=== PATIENT | male | born 1960 | race Caucasian/White ===

== ENCOUNTER 2017-11-17 18:23 | Inpatient (IN) | payer OTHER ==
[2017-11-17 23:58] LABS: WHITE BLOOD COUNT 11.8 10^3/ul (4.8-10.8)
[2017-11-17 23:58] LABS: ABNORMAL IP MESSAGE 1; HEMATOCRIT 39.2 % (42.0-52.0); HEMOGLOBIN 13.3 g/dl (14.0-18.0); MEAN CORPUSCULAR HEMOGLOBIN 32.3 pg (29.0-33.0); MEAN CORPUSCULAR HGB CONC 33.9 g/dl (32.0-37.0); MEAN CORPUSCULAR VOLUME 95.1 fl (82.0-101.0); MEAN PLATELET VOLUME 10.4 fl (7.4-10.4); PLATELET COUNT 285 10^3/UL (140-415); POSITIVE DIFF @See below; RED BLOOD COUNT 4.12 10^6/ul (4.70-6.10); RED CELL DISTRIBUTION WIDTH 13.2 % (11.5-14.5)
[2017-11-17] MEDS: morphine 2 MG INJ IV (23:58)
[2017-11-17] MEDS: ONDANSETRON 4 MG INJ IV (23:58)
[2017-11-17] MEDS: SOD CHLORIDE 0.9% 1,000 ML IV (23:58)
[2017-11-18 00:01] LABS: ADD MAN DIFF? YES
[2017-11-18 00:03] LABS: ADD UMIC NO; UR ASCORBIC ACID NEGATIVE (NEGATIVE); UR BILIRUBIN (Dip) NEGATIVE (NEGATIVE); UR BLOOD (Dip) NEGATIVE (NEGATIVE); UR CLARITY CLEAR (CLEAR); UR COLOR AMBER (YELLOW); UR GLUCOSE (Dip) NEGATIVE (NEGATIVE); UR KETONES (Dip) NEGATIVE (NEGATIVE); UR LEUKOCYTE ESTERASE (Dip) NEGATIVE Leu/ul (NEGATIVE); UR NITRITE (Dip) NEGATIVE (NEGATIVE); UR SPECIFIC GRAVITY (Dip) 1.021 (1.003-1.030); UR TOTAL PROTEIN (Dip) NEGATIVE (NEGATIVE); UR UROBILINOGEN (Dip) 2+ mg/dL (NEGATIVE)
[2017-11-18 00:14] LABS: ALANINE AMINOTRANSFERASE 32 IU/L (13-69); ALBUMIN/GLOBULIN RATIO 0.68; ALKALINE PHOSPHATASE 88 IU/L (42-121); ANION GAP 14 (8-16); ASPARTATE AMINO TRANSFERASE 33 IU/L (15-46); BILIRUBIN,INDIRECT 0.9 mg/dl (0-1.1); BILIRUBIN,TOTAL 0.9 mg/dl (0.2-1.3); BLOOD UREA NITROGEN 19 mg/dl (7-20); CARBON DIOXIDE 32 mmol/L (21-31); CHLORIDE 87 mmol/L (97-110); CREATININE 0.83 mg/dl (0.61-1.24); GLUCOSE 148 mg/dl (70-220); LIPASE 95 U/L (23-300); POTASSIUM 3.3 mmol/L (3.5-5.1); SODIUM 130 mmol/L (135-144); TOTAL PROTEIN 7.4 g/dl (6.1-8.1)
[2017-11-18] MEDS ORDERED: AZITHROMYCIN 500MG/NS (PMX) 250 ML IV (00:16)
[2017-11-18 00:38] LABS: TROPONIN-I < 0.012 ng/ml (0.000-0.120)
[2017-11-18] MEDS: CEFTRIAXONE 1 GM/50 ML (PMX) 50 ML IVPB (00:45)
[2017-11-18] MEDS: POTASSIUM CHLORIDE (SR) 20 MEQ TAB PO (00:45)
[2017-11-18] MEDS: SODIUM CHLORIDE 0.9% 1L BAG IV* (00:45)
[2017-11-18] MEDS ORDERED: NACL 0.9% 3 ML SYG IV (01:00)
[2017-11-18] MEDS: AZTREONAM 1 GM/NS (PMX) 50 ML IVPB (01:11)
[2017-11-18 01:24] LABS: MAGNESIUM 2.3 mg/dl (1.7-2.5)
[2017-11-18 01:24] LABS: BAND NEUTROPHILS #M 4.6 10^3/ul (0.0-0.6); BAND NEUTROPHILS % (M) 39 % (0-4); EOSINOPHILS % (M) 1 % (0-7); LYMPHOCYTES #M 0.1 10^3/ul (0.8-2.9); LYMPHOCYTES % (M) 1 % (15-51); MONOCYTE #M 0.1 10^3/ul (0.3-0.9); MONOCYTES % (M) 1 % (0-11); PLATELET ESTIMATE NORMAL; REACTIVE LYMPHOCYTES #M 0.1 10^3/ul (0.0-0.0); REACTIVE LYMPHOCYTES% (M) 1 % (0-0); SEG NEUT #M 7.3 10^3/ul (1.6-7.5); SEGMENTED NEUTROPHILS (M) % 57 % (39-77); SMUDGE%M 1 % (0-0)
[2017-11-18 01:28] LABS: LACTIC ACID 2.3 mmol/L (0.5-2.0)
[2017-11-18] MEDS: ALBUMIN HUMAN 25% 100 ML IV ×3 (01:29→18:19)
[2017-11-18 01:33] LABS: B-TYPE NATRIURETIC PEPTIDE 685 PG/ML (0-125)
[2017-11-18 01:49] LABS: ETHANOL < 10.0 mg/dl
[2017-11-18] MEDS: SOD CHLORIDE 0.9% 1,000 ML IV (02:29)
[2017-11-18 03:27] LABS: LACTIC ACID 1.6 mmol/L (0.5-2.0)
[2017-11-18] MEDS: SOD CHLORIDE 0.9% 500 ML IV (03:59)
[2017-11-18 04:16] LABS: CANNABINOIDS Negative (NEGATIVE)
[2017-11-18 04:18] LABS: AMPHETAMINE/METHAMPHETAMINE Negative (NEGATIVE); BARBITURATES Negative (NEGATIVE); BENZODIAZEPINES Negative (NEGATIVE); COCAINE Negative (NEGATIVE); OPIATES Negative (NEGATIVE)
[2017-11-18 05:22] LABS: ADD MAN DIFF? NO; HAAIG REFLEX REFLEX FILED
[2017-11-18 05:36] LABS: ABNORMAL IP MESSAGE 1; BASOPHILS % 0.2 % (0.0-2.0); EOSINOPHILS # 0.1 10^3/ul (0.0-0.5); EOSINOPHILS % 0.9 % (0.0-7.0); HEMATOCRIT 35.4 % (42.0-52.0); HEMOGLOBIN 11.7 g/dl (14.0-18.0); LYMPHOCYTES # 0.3 10^3/ul (0.8-2.9); MEAN CORPUSCULAR HGB CONC 33.1 g/dl (32.0-37.0); MEAN CORPUSCULAR VOLUME 96.7 fl (82.0-101.0); MEAN PLATELET VOLUME 10.5 fl (7.4-10.4); MONOCYTE # 0.5 10^3/ul (0.3-0.9); MONOCYTES % 4.9 % (0.0-11.0); NEUTROPHIL # 9.3 10^3/ul (1.6-7.5); NEUTROPHILS % 90.1 % (39.0-77.0); PLATELET COUNT 221 10^3/UL (140-415); POSITIVE DIFF @See below; RED BLOOD COUNT 3.66 10^6/ul (4.70-6.10); RED CELL DISTRIBUTION WIDTH 13.2 % (11.5-14.5)
[2017-11-18 05:36] LABS: WHITE BLOOD COUNT 10.3 10^3/ul (4.8-10.8)
[2017-11-18 05:42] LABS: CREATINE KINASE 31 IU/L (23-200)
[2017-11-18 05:46] LABS: LACTIC ACID 1.5 mmol/L (0.5-2.0)
[2017-11-18] MEDS: PIPER-TAZO 3.375 GM IV (PMX) 100 ML IVPB ×3 (05:46→18:19)
[2017-11-18 05:47] LABS: INR 1.44; PROTIME 17.8 Sec (11.9-14.9); PT RATIO 1.4
[2017-11-18 05:48] LABS: PARTIAL THROMBOPLASTIN TIME 40.3 Sec (25.0-35.0)
[2017-11-18 05:56] LABS: TROPONIN-I < 0.012 ng/ml (0.000-0.120)
[2017-11-18 06:24] LABS: HEPATITIS B SURFACE ANTIGEN NEGATIVE (NEGATIVE)
[2017-11-18 06:42] LABS: HEPATITIS B CORE ANTIBODY NEGATIVE (NEGATIVE); HEPATITIS C VIRAL ANTIBODY NEGATIVE (NEGATIVE)
[2017-11-18 07:23] LABS: HEMOGLOBIN A1C 6.3 % (0-5.9)
[2017-11-18 08:01] LABS: BAND NEUTROPHILS #M 3.5 10^3/ul (0.0-0.6); BAND NEUTROPHILS % (M) 34 % (0-4); BASOPHIL #M 0.1 10^3/ul (0.0-0.0); BASOPHILS % (M) 1 % (0-2); BURR CELLS 1+ (0-0); GIANT THROMBO% (M) 1 % (0-0); LYMPHOCYTES #M 0.2 10^3/ul (0.8-2.9); LYMPHOCYTES % (M) 2 % (15-51); MONOCYTES % (M) 10 % (0-11); PLATELET ESTIMATE NORMAL; POIKILOCYTOSIS 1+ (0-0); POLYCHROMASIA 1+ (0-0); SEG NEUT #M 5.8 10^3/ul (1.6-7.5); SEGMENTED NEUTROPHILS (M) % 53 % (39-77)
[2017-11-18 08:46] LABS: ALANINE AMINOTRANSFERASE 30 IU/L (13-69); ALBUMIN 2.3 g/dl (3.3-4.9); ALBUMIN/GLOBULIN RATIO 0.65; ALKALINE PHOSPHATASE 60 IU/L (42-121); ANION GAP 14 (8-16); ASPARTATE AMINO TRANSFERASE 22 IU/L (15-46); BILIRUBIN,INDIRECT 0.5 mg/dl (0-1.1); BILIRUBIN,TOTAL 0.5 mg/dl (0.2-1.3); BLOOD UREA NITROGEN 16 mg/dl (7-20); CALCIUM 7.4 mg/dl (8.4-10.2); CARBON DIOXIDE 28 mmol/L (21-31); CHLORIDE 96 mmol/L (97-110); CREATININE 0.66 mg/dl (0.61-1.24); GLUCOSE 103 mg/dl (70-220); HDL CHOLESTEROL 13 mg/dl (28-71); POTASSIUM 3.8 mmol/L (3.5-5.1); SODIUM 134 mmol/L (135-144); TOTAL PROTEIN 5.8 g/dl (6.1-8.1); TRIGLYCERIDES 44 mg/dl (0-149)
[2017-11-18 08:53] LABS: CHOLESTEROL < 50 mg/dl (100-200)
[2017-11-18] MEDS: MULTIVITAMINS 10 ML, THIAMINE 100 MG, FOLIC ACID 1 MG in SOD CHLORIDE 0.9% 1,000 ML IVPB (09:34)
[2017-11-18 11:59] LABS: LACTIC ACID 1.1 mmol/L (0.5-2.0)
[2017-11-18 12:03] LABS: CREATINE KINASE 21 IU/L (23-200)
[2017-11-18 12:18] LABS: HIV 1&2 ANTIBODY NEGATIVE (NEGATIVE)
[2017-11-18 12:25] LABS: CK-MB < 0.22 ng/ml (0.0-2.4); TROPONIN-I < 0.012 ng/ml (0.000-0.120)
[2017-11-18] MEDS ORDERED: DOXYCYCLINE 100 MG TAB PO (18:00)
[2017-11-18] MEDS: GUAIFENESIN/DM 5ML CUP PO (21:01)
[2017-11-18] MEDS ORDERED: VANCOMYCIN IV PER PHARMACY XX (21:30)
[2017-11-18] MEDS: VANCOMYCIN 1.5 GM in SOD CHLORIDE 0.9% 250 ML IVPB (23:32)
[2017-11-19] MEDS: PIPER-TAZO 3.375 GM IV (PMX) 100 ML IVPB ×2 (01:21→05:30)
[2017-11-19 06:05] LABS: ADD MAN DIFF? NO
[2017-11-19] MEDS: GUAIFENESIN/DM 5ML CUP PO ×3 (06:07→20:28)
[2017-11-19 06:16] LABS: ABNORMAL IP MESSAGE 1; HEMATOCRIT 33.8 % (42.0-52.0); HEMOGLOBIN 11.3 g/dl (14.0-18.0); MEAN CORPUSCULAR HEMOGLOBIN 32.3 pg (29.0-33.0); MEAN CORPUSCULAR HGB CONC 33.4 g/dl (32.0-37.0); MEAN CORPUSCULAR VOLUME 96.6 fl (82.0-101.0); MEAN PLATELET VOLUME 10.2 fl (7.4-10.4); PLATELET COUNT 201 10^3/UL (140-415); POSITIVE DIFF @See below; RED CELL DISTRIBUTION WIDTH 13.3 % (11.5-14.5)
[2017-11-19 06:16] LABS: WHITE BLOOD COUNT 8.2 10^3/ul (4.8-10.8)
[2017-11-19 07:09] LABS: ANION GAP 11 (8-16); BLOOD UREA NITROGEN 5 mg/dl (7-20); CALCIUM 7.6 mg/dl (8.4-10.2); CARBON DIOXIDE 29 mmol/L (21-31); CHLORIDE 100 mmol/L (97-110); CREATININE 0.52 mg/dl (0.61-1.24); GLUCOSE 121 mg/dl (70-220); MAGNESIUM 2.3 mg/dl (1.7-2.5); PHOSPHORUS 2.4 mg/dl (2.5-4.9); POTASSIUM 3.2 mmol/L (3.5-5.1); SODIUM 137 mmol/L (135-144)
[2017-11-19] MEDS: MULTIVITAMINS 10 ML, THIAMINE 100 MG, FOLIC ACID 1 MG in SOD CHLORIDE 0.9% 1,000 ML IVPB (08:15)
[2017-11-19 08:49] LABS: BAND NEUTROPHILS #M 2.6 10^3/ul (0.0-0.6); BAND NEUTROPHILS % (M) 32 % (0-4); EOSINOPHILS % (M) 1 % (0-7); LYMPHOCYTES #M 0.1 10^3/ul (0.8-2.9); LYMPHOCYTES % (M) 2 % (15-51); MONOCYTE #M 0.5 10^3/ul (0.3-0.9); MONOCYTES % (M) 7 % (0-11); PLATELET ESTIMATE NORMAL; POLYCHROMASIA 2+ (0-0); SEGMENTED NEUTROPHILS (M) % 58 % (39-77); SMUDGE%M 5 % (0-0)
[2017-11-19] MEDS: POTASSIUM CHLORIDE (SR) 20 MEQ TAB PO (10:08)
[2017-11-19] MEDS: CEFTRIAXONE 1 GM/50 ML (PMX) 50 ML IVPB (10:08)
[2017-11-19] MEDS: VANCOMYCIN 1.25 GM in SOD CHLORIDE 0.9% 250 ML IVPB ×2 (10:59→22:45)
[2017-11-19] MEDS: NEUTRA-PHOS 250 MG PACKET PO (10:59)
[2017-11-19] MEDS: ACETAMINOPHEN 325 MG TAB PO (20:29)
[2017-11-20 06:12] LABS: ADD MAN DIFF? NO
[2017-11-20 06:16] LABS: ABNORMAL IP MESSAGE 1; BASOPHIL # 0.1 10^3/ul (0.0-0.1); BASOPHILS % 0.9 % (0.0-2.0); EOSINOPHILS # 0.2 10^3/ul (0.0-0.5); EOSINOPHILS % 1.6 % (0.0-7.0); HEMATOCRIT 35.8 % (42.0-52.0); HEMOGLOBIN 12.1 g/dl (14.0-18.0); LYMPHOCYTES # 0.3 10^3/ul (0.8-2.9); LYMPHOCYTES % 2.9 % (15.0-51.0); MEAN CORPUSCULAR HEMOGLOBIN 32.6 pg (29.0-33.0); MEAN CORPUSCULAR HGB CONC 33.8 g/dl (32.0-37.0); MEAN CORPUSCULAR VOLUME 96.5 fl (82.0-101.0); MEAN PLATELET VOLUME 10.2 fl (7.4-10.4); MONOCYTE # 0.8 10^3/ul (0.3-0.9); MONOCYTES % 8.3 % (0.0-11.0); NEUTROPHIL # 7.9 10^3/ul (1.6-7.5); PLATELET COUNT 205 10^3/UL (140-415); POSITIVE DIFF @See below; RED BLOOD COUNT 3.71 10^6/ul (4.70-6.10); RED CELL DISTRIBUTION WIDTH 13.3 % (11.5-14.5)
[2017-11-20 06:16] LABS: WHITE BLOOD COUNT 9.3 10^3/ul (4.8-10.8)
[2017-11-20 07:08] LABS: ANION GAP 11 (8-16); BLOOD UREA NITROGEN 4 mg/dl (7-20); CARBON DIOXIDE 25 mmol/L (21-31); CHLORIDE 105 mmol/L (97-110); CREATININE 0.48 mg/dl (0.61-1.24); GLUCOSE 111 mg/dl (70-220); MAGNESIUM 1.8 mg/dl (1.7-2.5); PHOSPHORUS 2.5 mg/dl (2.5-4.9); POTASSIUM 3.3 mmol/L (3.5-5.1); SODIUM 138 mmol/L (135-144)
[2017-11-20] MEDS: CEFTRIAXONE 1 GM/50 ML (PMX) 50 ML IVPB (09:02)
[2017-11-20] MEDS: POTASSIUM CHLORIDE (SR) 20 MEQ TAB PO (12:08)
[2017-11-20] MEDS: GUAIFENESIN LA 600 MG TABSR PO ×2 (12:08→20:05)
[2017-11-20] MEDS: HYDROCODONE/APAP (5/325) TAB PO ×2 (15:51→23:53)
[2017-11-20] MEDS ORDERED: PHYTONADIONE 10 MG/ML INJ SC (16:00)
[2017-11-20] MEDS ORDERED: PHYTONADIONE 1 MG/0.5 ML SYG IV (16:00)
[2017-11-20] MEDS: SOD CHLORIDE 0.9% IV (17:34)
[2017-11-20] MEDS: PHYTONADIONE IV (17:34)
[2017-11-20] MEDS: SOD CHLORIDE 0.9% 1,000 ML IV (23:53)
[2017-11-21] MEDS: LEVOFLOXACIN 750 MG TABLET PO (05:49)
[2017-11-21 05:51] LABS: IMMEDIATE SPIN CROSSMATCH 1 2
[2017-11-21] MEDS: GUAIFENESIN LA 600 MG TABSR PO ×2 (08:28→20:56)
[2017-11-21 14:07] LABS: ADD MAN DIFF? NO
[2017-11-21 14:10] LABS: ABNORMAL IP MESSAGE 1; BASOPHIL # 0.1 10^3/ul (0.0-0.1); BASOPHILS % 0.9 % (0.0-2.0); EOSINOPHILS # 0.2 10^3/ul (0.0-0.5); EOSINOPHILS % 1.8 % (0.0-7.0); HEMOGLOBIN 11.9 g/dl (14.0-18.0); LYMPHOCYTES # 0.2 10^3/ul (0.8-2.9); LYMPHOCYTES % 2.5 % (15.0-51.0); MEAN CORPUSCULAR HEMOGLOBIN 31.6 pg (29.0-33.0); MEAN CORPUSCULAR HGB CONC 33.1 g/dl (32.0-37.0); MEAN CORPUSCULAR VOLUME 95.5 fl (82.0-101.0); MEAN PLATELET VOLUME 9.7 fl (7.4-10.4); MONOCYTE # 0.6 10^3/ul (0.3-0.9); MONOCYTES % 6.7 % (0.0-11.0); NEUTROPHIL # 8.3 10^3/ul (1.6-7.5); NEUTROPHILS % 86.7 % (39.0-77.0); PLATELET COUNT 197 10^3/UL (140-415); POSITIVE DIFF @See below; RED BLOOD COUNT 3.77 10^6/ul (4.70-6.10); RED CELL DISTRIBUTION WIDTH 13.4 % (11.5-14.5)
[2017-11-21 14:10] LABS: WHITE BLOOD COUNT 9.6 10^3/ul (4.8-10.8)
[2017-11-21 14:26] LABS: ANION GAP 11 (8-16); BLOOD UREA NITROGEN 5 mg/dl (7-20); CALCIUM 8.4 mg/dl (8.4-10.2); CARBON DIOXIDE 24 mmol/L (21-31); CHLORIDE 106 mmol/L (97-110); CREATININE 0.41 mg/dl (0.61-1.24); GLUCOSE 79 mg/dl (70-220); MAGNESIUM 1.8 mg/dl (1.7-2.5); PHOSPHORUS 3.2 mg/dl (2.5-4.9); POTASSIUM 3.6 mmol/L (3.5-5.1); SODIUM 137 mmol/L (135-144)
[2017-11-21 14:45] LABS: PROTIME 16.4 Sec (11.9-14.9); PT RATIO 1.3
[2017-11-21 14:46] LABS: PARTIAL THROMBOPLASTIN TIME 42.1 Sec (25.0-35.0)
[2017-11-21 17:56] LABS: ANA SCREEN POSITIVE (NEGATIVE)
[2017-11-21] MEDS: CLINDAMYCIN 300 MG/D5W (PMX) 50 ML IVPB (20:06)
[2017-11-21 20:12] LABS: ANA PATTERN HOMOGENEOUS
[2017-11-21] MEDS: LEVOFLOXACIN 750MG/D5W (PMX) 150 ML IVPB (20:56)
[2017-11-21] MEDS: HYDROCODONE/APAP (5/325) TAB PO (21:18)
[2017-11-22] MEDS: CLINDAMYCIN 300 MG/D5W (PMX) 50 ML IVPB ×4 (00:57→17:25)
[2017-11-22 06:28] LABS: ABNORMAL IP MESSAGE 1; HEMATOCRIT 36.3 % (42.0-52.0); MEAN CORPUSCULAR HEMOGLOBIN 31.8 pg (29.0-33.0); MEAN CORPUSCULAR HGB CONC 33.1 g/dl (32.0-37.0); MEAN CORPUSCULAR VOLUME 96.3 fl (82.0-101.0); MEAN PLATELET VOLUME 10.3 fl (7.4-10.4); PLATELET COUNT 207 10^3/UL (140-415); POSITIVE DIFF @See below; RED BLOOD COUNT 3.77 10^6/ul (4.70-6.10); RED CELL DISTRIBUTION WIDTH 13.4 % (11.5-14.5)
[2017-11-22 06:28] LABS: WHITE BLOOD COUNT 13.2 10^3/ul (4.8-10.8)
[2017-11-22 06:51] LABS: ADD MAN DIFF? YES
[2017-11-22 06:52] LABS: ANION GAP 11 (8-16); BLOOD UREA NITROGEN 8 mg/dl (7-20); CARBON DIOXIDE 26 mmol/L (21-31); CHLORIDE 104 mmol/L (97-110); CREATININE 0.49 mg/dl (0.61-1.24); GLUCOSE 102 mg/dl (70-220); POTASSIUM 3.8 mmol/L (3.5-5.1); SODIUM 137 mmol/L (135-144)
[2017-11-22 06:54] LABS: PHOSPHORUS 3.3 mg/dl (2.5-4.9)
[2017-11-22 06:54] LABS: MAGNESIUM 1.7 mg/dl (1.7-2.5)
[2017-11-22 08:10] LABS: ANISOCYTOSIS 1+ (0-0); BAND NEUTROPHILS #M 1.8 10^3/ul (0.0-0.6); BAND NEUTROPHILS % (M) 14 % (0-4); BURR CELLS 1+ (0-0); EOSINOPHILS % (M) 5 % (0-7); LYMPHOCYTES #M 0.3 10^3/ul (0.8-2.9); LYMPHOCYTES % (M) 3 % (15-51); MONOCYTE #M 0.9 10^3/ul (0.3-0.9); MONOCYTES % (M) 7 % (0-11); PLATELET ESTIMATE NORMAL; POIKILOCYTOSIS 1+ (0-0); SEG NEUT #M 9.6 10^3/ul (1.6-7.5); SEGMENTED NEUTROPHILS (M) % 71 % (39-77); SMUDGE%M 3 % (0-0)
[2017-11-22] MEDS: GUAIFENESIN LA 600 MG TABSR PO ×2 (09:07→20:53)
[2017-11-22] MEDS: HYDROCODONE/APAP (5/325) TAB PO ×2 (11:35→22:35)
[2017-11-22] MEDS: LEVOFLOXACIN 750MG/D5W (PMX) 150 ML IVPB (19:26)
[2017-11-23] MEDS: CLINDAMYCIN 300 MG/D5W (PMX) 50 ML IVPB ×5 (00:03→23:47)
[2017-11-23] MEDS: GUAIFENESIN 20 MG/ML 5ML CUP PO ×2 (06:26→23:56)
[2017-11-23 06:29] LABS: ADD MAN DIFF? NO
[2017-11-23 06:38] LABS: WHITE BLOOD COUNT 10.4 10^3/ul (4.8-10.8)
[2017-11-23 06:38] LABS: ABNORMAL IP MESSAGE 1; BASOPHIL # 0.1 10^3/ul (0.0-0.1); BASOPHILS % 0.7 % (0.0-2.0); EOSINOPHILS # 0.2 10^3/ul (0.0-0.5); EOSINOPHILS % 1.6 % (0.0-7.0); HEMATOCRIT 37.7 % (42.0-52.0); HEMOGLOBIN 12.4 g/dl (14.0-18.0); LYMPHOCYTES # 0.5 10^3/ul (0.8-2.9); LYMPHOCYTES % 4.4 % (15.0-51.0); MEAN CORPUSCULAR HEMOGLOBIN 31.6 pg (29.0-33.0); MEAN CORPUSCULAR HGB CONC 32.9 g/dl (32.0-37.0); MEAN CORPUSCULAR VOLUME 95.9 fl (82.0-101.0); MEAN PLATELET VOLUME 9.7 fl (7.4-10.4); MONOCYTE # 0.8 10^3/ul (0.3-0.9); MONOCYTES % 7.3 % (0.0-11.0); NEUTROPHIL # 8.8 10^3/ul (1.6-7.5); NEUTROPHILS % 84.9 % (39.0-77.0); PLATELET COUNT 219 10^3/UL (140-415); POSITIVE DIFF @See below; RED BLOOD COUNT 3.93 10^6/ul (4.70-6.10); RED CELL DISTRIBUTION WIDTH 13.2 % (11.5-14.5)
[2017-11-23 07:00] LABS: MAGNESIUM 1.8 mg/dl (1.7-2.5)
[2017-11-23 07:00] LABS: PHOSPHORUS 3.7 mg/dl (2.5-4.9)
[2017-11-23 07:05] LABS: ANION GAP 12 (8-16); BLOOD UREA NITROGEN 6 mg/dl (7-20); CALCIUM 8.1 mg/dl (8.4-10.2); CARBON DIOXIDE 26 mmol/L (21-31); CHLORIDE 104 mmol/L (97-110); CREATININE 0.52 mg/dl (0.61-1.24); GLUCOSE 106 mg/dl (70-220); SODIUM 138 mmol/L (135-144)
[2017-11-23] MEDS: GUAIFENESIN LA 600 MG TABSR PO ×2 (09:17→20:33)
[2017-11-23] MEDS: LEVOFLOXACIN 750MG/D5W (PMX) 150 ML IVPB (17:25)
[2017-11-24] MEDS: CLINDAMYCIN 300 MG/D5W (PMX) 50 ML IVPB ×3 (05:57→17:22)
[2017-11-24] MEDS ORDERED: ROCURONIUM 50 MG INJ ×2 (07:00→17:20)
[2017-11-24] MEDS: GUAIFENESIN LA 600 MG TABSR PO ×2 (08:31→21:00)
[2017-11-24] MEDS: SOD CHLORIDE 0.9% 250 ML IV* ×2 (09:18→12:13)
[2017-11-24 10:41] LABS: IMMEDIATE SPIN CROSSMATCH 1 2
[2017-11-24 13:16] LABS: INR 1.17; PROTIME 15.1 Sec (11.9-14.9); PT RATIO 1.2
[2017-11-24] MEDS ORDERED: GLYCOPYRROLATE 0.4 MG INJ (17:20)
[2017-11-24] MEDS ORDERED: PROPOFOL 20 ML (17:20)
[2017-11-24] MEDS ORDERED: CEFAZOLIN 1 GM INJ (17:20)
[2017-11-24] MEDS ORDERED: NEOSTIGMINE 3 MG/3 ML SYRINGE (17:20)
[2017-11-24] MEDS ORDERED: FENTAnyl 50 MCG/ML VIAL (17:21)
[2017-11-24] MEDS ORDERED: ONDANSETRON 4 MG INJ (17:21)
[2017-11-24] MEDS ORDERED: DEXAMETHASONE 4 MG/ML 1 ML INJ (17:21)
[2017-11-24] MEDS ORDERED: morphine SULFATE/PF (10 MG/10 ML) INJ (17:23)
[2017-11-24] MEDS ORDERED: BUPIVACAINE 0.75%/DEXT (SPINAL) 2 ML INJ (17:23)
[2017-11-24] MEDS ORDERED: EPINEPHrine 1 MG INJ (17:27)
[2017-11-24] MEDS ORDERED: SUGAMMADEX SODIUM 200 MG/2 ML VIAL IV (20:35)
[2017-11-24 22:09] LABS: AADO2 Arterial 161.9 mmHg (7.0-24.0); Arterial Base Excess -9.1 mmol/L (-3.0-3); Arterial Blood Gas Oxygen Sat 90.6 mmHG (95.0-98.0); Arterial COHb 0.3 % (0.0-3.0); Arterial Fraction of Oxyhgb 90.1 % (93.0-99.0); Arterial HCO3 18.2 mmol/L (22.0-26.0); Arterial MetHb 0.3 % (0.0-1.5); Arterial Total Hemglobin 12.8 g/dl (12.0-18.0); Arterial pCO2 44.7 mmhg (35-45); MODE VENT - AC; Site A-Line
[2017-11-24] MEDS: morphine 2 MG INJ IV (22:28)
[2017-11-24] MEDS: PROPOFOL 100 ML IV (22:28)
[2017-11-24] MEDS: LEVOFLOXACIN 750MG/D5W (PMX) 150 ML IVPB (22:39)
[2017-11-24] MEDS: SOD CHLORIDE 0.9% 500 ML IV (23:16)
[2017-11-25] MEDS: CLINDAMYCIN 300 MG/D5W (PMX) 50 ML IVPB ×2 (00:32→06:23)
[2017-11-25 01:09] LABS: HEMATOCRIT 30.7 % (42.0-52.0); HEMOGLOBIN 9.8 g/dl (14.0-18.0)
[2017-11-25] MEDS: FENTAnyl (DRIP) 1000 mcg/100mL 100 ML IV (02:27)
[2017-11-25] MEDS: DEXTROSE 5%-0.45% NACL 1,000 ML IV ×2 (02:33→17:50)
[2017-11-25] MEDS: morphine 2 MG INJ IV (02:54)
[2017-11-25 05:19] LABS: ADD MAN DIFF? NO
[2017-11-25 05:28] LABS: ABNORMAL IP MESSAGE 1; BASOPHIL # 0.1 10^3/ul (0.0-0.1); BASOPHILS % 0.5 % (0.0-2.0); EOSINOPHILS # 0.3 10^3/ul (0.0-0.5); EOSINOPHILS % 1.1 % (0.0-7.0); HEMATOCRIT 30.8 % (42.0-52.0); HEMOGLOBIN 9.9 g/dl (14.0-18.0); LYMPHOCYTES # 0.5 10^3/ul (0.8-2.9); LYMPHOCYTES % 1.9 % (15.0-51.0); MEAN CORPUSCULAR HEMOGLOBIN 32.2 pg (29.0-33.0); MEAN CORPUSCULAR HGB CONC 32.1 g/dl (32.0-37.0); MEAN CORPUSCULAR VOLUME 100.3 fl (82.0-101.0); MEAN PLATELET VOLUME 9.8 fl (7.4-10.4); MONOCYTE # 0.8 10^3/ul (0.3-0.9); MONOCYTES % 3.4 % (0.0-11.0); NEUTROPHIL # 22.1 10^3/ul (1.6-7.5); NEUTROPHILS % 91.9 % (39.0-77.0); PLATELET COUNT 261 10^3/UL (140-415); POSITIVE DIFF @See below; RED BLOOD COUNT 3.07 10^6/ul (4.70-6.10); RED CELL DISTRIBUTION WIDTH 14.1 % (11.5-14.5)
[2017-11-25 05:40] LABS: INR 1.27; PROTIME 16.1 Sec (11.9-14.9); PT RATIO 1.3
[2017-11-25 05:41] LABS: PARTIAL THROMBOPLASTIN TIME 38.8 Sec (25.0-35.0)
[2017-11-25 05:55] LABS: ANION GAP 8 (8-16); BLOOD UREA NITROGEN 11 mg/dl (7-20); CALCIUM 6.3 mg/dl (8.4-10.2); CARBON DIOXIDE 20 mmol/L (21-31); CHLORIDE 116 mmol/L (97-110); CREATININE 0.76 mg/dl (0.61-1.24); GLUCOSE 109 mg/dl (70-220); MAGNESIUM 1.4 mg/dl (1.7-2.5); PHOSPHORUS 3.6 mg/dl (2.5-4.9); POTASSIUM 4.5 mmol/L (3.5-5.1); SODIUM 139 mmol/L (135-144)
[2017-11-25] MEDS ORDERED: NORepinephrine 8MG/250 ML (PMX 250 ML (06:38)
[2017-11-25] MEDS: NORepinephrine 8MG/250 ML (PMX 250 ML IV (06:45)
[2017-11-25 07:39] LABS: AADO2 Arterial 214.9 mmHg (7.0-24.0); Arterial Base Excess -5.8 mmol/L (-3.0-3); Arterial Blood Gas Oxygen Sat 98.2 mmHG (95.0-98.0); Arterial COHb 0.5 % (0.0-3.0); Arterial Fraction of Oxyhgb 97.6 % (93.0-99.0); Arterial MetHb 0.1 % (0.0-1.5); Arterial Total Hemglobin 10.9 g/dl (12.0-18.0); MODE VENT - AC; Site A-Line
[2017-11-25] MEDS: MAGNESIUM SULFATE 2 GM/50 ML 50 ML IVPB (09:38)
[2017-11-25] MEDS: LORAZEPAM 2 MG INJ IV (09:38)
[2017-11-25] MEDS: CEFEPIME 1GM/50 ML (PMX) 50 ML IVPB ×2 (09:55→21:14)
[2017-11-25 10:16] LABS: AADO2 Arterial 167.6 mmHg (7.0-24.0); Arterial Base Excess -5.8 mmol/L (-3.0-3); Arterial Blood Gas Oxygen Sat 95.2 mmHG (95.0-98.0); Arterial COHb 0.3 % (0.0-3.0); Arterial Fraction of Oxyhgb 94.8 % (93.0-99.0); Arterial HCO3 18.9 mmol/L (22.0-26.0); Arterial MetHb 0.1 % (0.0-1.5); Arterial Total Hemglobin 11.6 g/dl (12.0-18.0); Arterial pCO2 34.5 mmhg (35-45); Blood Gas PS 10; MODE VENT - CPAP; Site A-Line
[2017-11-25] MEDS: GUAIFENESIN LA 600 MG TABSR PO ×2 (10:26→21:14)
[2017-11-25] MEDS: ALBUTEROL/IPRATROPIUM (NEB) 3 ML AMP HHN ×3 (10:49→20:15)
[2017-11-25] MEDS: CLINDAMYCIN 900 MG/D5W (PMX) 50 ML IVPB ×2 (12:01→17:51)
[2017-11-25] MEDS: HYDROCODONE/APAP (5/325) TAB PO (19:26)
[2017-11-26] MEDS: CLINDAMYCIN 900 MG/D5W (PMX) 50 ML IVPB ×4 (00:24→17:58)
[2017-11-26] MEDS: morphine LIQ (10 MG/5 ML) CUP PO ×2 (00:45→08:50)
[2017-11-26] MEDS: ALBUTEROL/IPRATROPIUM (NEB) 3 ML AMP HHN ×4 (02:09→20:36)
[2017-11-26 05:36] LABS: ADD MAN DIFF? NO
[2017-11-26 05:37] LABS: WHITE BLOOD COUNT 17.2 10^3/ul (4.8-10.8)
[2017-11-26 05:37] LABS: ABNORMAL IP MESSAGE 1; BASOPHIL # 0.1 10^3/ul (0.0-0.1); BASOPHILS % 0.5 % (0.0-2.0); EOSINOPHILS # 0.2 10^3/ul (0.0-0.5); EOSINOPHILS % 0.9 % (0.0-7.0); HEMATOCRIT 29.7 % (42.0-52.0); HEMOGLOBIN 9.6 g/dl (14.0-18.0); LYMPHOCYTES # 0.3 10^3/ul (0.8-2.9); LYMPHOCYTES % 1.8 % (15.0-51.0); MEAN CORPUSCULAR HEMOGLOBIN 32.4 pg (29.0-33.0); MEAN CORPUSCULAR HGB CONC 32.3 g/dl (32.0-37.0); MEAN CORPUSCULAR VOLUME 100.3 fl (82.0-101.0); MEAN PLATELET VOLUME 9.2 fl (7.4-10.4); MONOCYTE # 1.3 10^3/ul (0.3-0.9); MONOCYTES % 7.6 % (0.0-11.0); NEUTROPHIL # 15.1 10^3/ul (1.6-7.5); NEUTROPHILS % 88.2 % (39.0-77.0); PLATELET COUNT 179 10^3/UL (140-415); POSITIVE DIFF @See below; RED BLOOD COUNT 2.96 10^6/ul (4.70-6.10); RED CELL DISTRIBUTION WIDTH 14.4 % (11.5-14.5)
[2017-11-26] MEDS: DEXTROSE 5%-0.45% NACL 1,000 ML IV (05:44)
[2017-11-26] MEDS: HYDROCODONE/APAP (5/325) TAB PO ×3 (05:45→19:18)
[2017-11-26 06:10] LABS: ANION GAP 10 (8-16); BLOOD UREA NITROGEN 10 mg/dl (7-20); CALCIUM 7.3 mg/dl (8.4-10.2); CARBON DIOXIDE 21 mmol/L (21-31); CHLORIDE 110 mmol/L (97-110); CREATININE 0.82 mg/dl (0.61-1.24); GLUCOSE 129 mg/dl (70-220); MAGNESIUM 2.1 mg/dl (1.7-2.5); PHOSPHORUS 3.2 mg/dl (2.5-4.9); POTASSIUM 4.5 mmol/L (3.5-5.1); SODIUM 136 mmol/L (135-144)
[2017-11-26] MEDS: GUAIFENESIN LA 600 MG TABSR PO ×2 (08:41→22:02)
[2017-11-26] MEDS: CEFEPIME 1GM/50 ML (PMX) 50 ML IVPB ×2 (08:41→22:02)
[2017-11-27] MEDS: CLINDAMYCIN 900 MG/D5W (PMX) 50 ML IVPB ×5 (00:21→23:28)
[2017-11-27] MEDS: ALBUTEROL/IPRATROPIUM (NEB) 3 ML AMP HHN ×4 (01:40→19:50)
[2017-11-27] MEDS: HYDROCODONE/APAP (5/325) TAB PO ×2 (05:23→21:33)
[2017-11-27 06:39] LABS: ADD MAN DIFF? NO
[2017-11-27 06:50] LABS: ABNORMAL IP MESSAGE 1; BASOPHIL # 0.1 10^3/ul (0.0-0.1); BASOPHILS % 0.4 % (0.0-2.0); EOSINOPHILS # 0.2 10^3/ul (0.0-0.5); HEMATOCRIT 27.6 % (42.0-52.0); LYMPHOCYTES # 0.3 10^3/ul (0.8-2.9); LYMPHOCYTES % 1.8 % (15.0-51.0); MEAN CORPUSCULAR HGB CONC 32.6 g/dl (32.0-37.0); MEAN CORPUSCULAR VOLUME 95.2 fl (82.0-101.0); MEAN PLATELET VOLUME 9.6 fl (7.4-10.4); MONOCYTE # 1.1 10^3/ul (0.3-0.9); MONOCYTES % 6.9 % (0.0-11.0); NEUTROPHIL # 13.7 10^3/ul (1.6-7.5); PLATELET COUNT 163 10^3/UL (140-415); POSITIVE DIFF @See below; RED CELL DISTRIBUTION WIDTH 13.9 % (11.5-14.5)
[2017-11-27 06:50] LABS: WHITE BLOOD COUNT 15.4 10^3/ul (4.8-10.8)
[2017-11-27 08:18] LABS: ANION GAP 9 (8-16); BLOOD UREA NITROGEN 8 mg/dl (7-20); CARBON DIOXIDE 24 mmol/L (21-31); CHLORIDE 104 mmol/L (97-110); GLUCOSE 111 mg/dl (70-220); POTASSIUM 3.9 mmol/L (3.5-5.1); SODIUM 133 mmol/L (135-144)
[2017-11-27] MEDS: morphine LIQ (10 MG/5 ML) CUP PO ×2 (09:04→17:04)
[2017-11-27] MEDS: CEFEPIME 1GM/50 ML (PMX) 50 ML IVPB ×2 (09:04→21:32)
[2017-11-27] MEDS: GUAIFENESIN LA 600 MG TABSR PO ×2 (09:05→21:32)
[2017-11-27] MEDS: GUAIFENESIN 20 MG/ML 5ML CUP PO (17:09)
[2017-11-27] MEDS: ONDANSETRON 4 MG INJ IV (18:08)
[2017-11-28] MEDS: ALBUTEROL/IPRATROPIUM (NEB) 3 ML AMP HHN ×4 (01:29→20:04)
[2017-11-28] MEDS: HYDROCODONE/APAP (5/325) TAB PO (03:57)
[2017-11-28] MEDS: CLINDAMYCIN 900 MG/D5W (PMX) 50 ML IVPB (05:48)
[2017-11-28] MEDS: morphine LIQ (10 MG/5 ML) CUP PO (06:50)
[2017-11-28 07:13] LABS: ADD MAN DIFF? NO
[2017-11-28 07:16] LABS: WHITE BLOOD COUNT 13.6 10^3/ul (4.8-10.8)
[2017-11-28 07:16] LABS: ABNORMAL IP MESSAGE 1; BASOPHIL # 0.1 10^3/ul (0.0-0.1); BASOPHILS % 0.6 % (0.0-2.0); EOSINOPHILS # 0.1 10^3/ul (0.0-0.5); HEMATOCRIT 30.6 % (42.0-52.0); HEMOGLOBIN 10.1 g/dl (14.0-18.0); LYMPHOCYTES # 0.3 10^3/ul (0.8-2.9); LYMPHOCYTES % 2.1 % (15.0-51.0); MEAN CORPUSCULAR HEMOGLOBIN 31.5 pg (29.0-33.0); MEAN CORPUSCULAR VOLUME 95.3 fl (82.0-101.0); MEAN PLATELET VOLUME 9.4 fl (7.4-10.4); MONOCYTES % 7.1 % (0.0-11.0); NEUTROPHIL # 12.1 10^3/ul (1.6-7.5); NEUTROPHILS % 88.3 % (39.0-77.0); PLATELET COUNT 232 10^3/UL (140-415); POSITIVE DIFF @See below; RED BLOOD COUNT 3.21 10^6/ul (4.70-6.10); RED CELL DISTRIBUTION WIDTH 13.8 % (11.5-14.5)
[2017-11-28 07:40] LABS: ANION GAP 9 (8-16); BLOOD UREA NITROGEN 7 mg/dl (7-20); CALCIUM 8.2 mg/dl (8.4-10.2); CARBON DIOXIDE 28 mmol/L (21-31); CHLORIDE 101 mmol/L (97-110); CREATININE 0.68 mg/dl (0.61-1.24); GLUCOSE 108 mg/dl (70-220); POTASSIUM 3.8 mmol/L (3.5-5.1); SODIUM 134 mmol/L (135-144)
[2017-11-28] MEDS: CEFEPIME 1GM/50 ML (PMX) 50 ML IVPB (08:16)
[2017-11-28] MEDS: GUAIFENESIN LA 600 MG TABSR PO ×2 (08:16→20:19)
[2017-11-28] MEDS: ONDANSETRON 4 MG INJ IV (17:22)
[2017-11-28] MEDS: ACETAMINOPHEN 325 MG TAB PO (20:19)
[2017-11-29] MEDS: ALBUTEROL/IPRATROPIUM (NEB) 3 ML AMP HHN ×4 (01:08→19:39)
[2017-11-29] MEDS: LEVOFLOXACIN 750 MG TABLET PO (06:01)
[2017-11-29] MEDS: GUAIFENESIN LA 600 MG TABSR PO ×2 (08:17→21:00)
[2017-11-29 09:16] LABS: ADD MAN DIFF? NO
[2017-11-29 09:22] LABS: ABNORMAL IP MESSAGE 1; BASOPHIL # 0.1 10^3/ul (0.0-0.1); BASOPHILS % 0.6 % (0.0-2.0); EOSINOPHILS # 0.2 10^3/ul (0.0-0.5); EOSINOPHILS % 1.2 % (0.0-7.0); HEMOGLOBIN 10.7 g/dl (14.0-18.0); LYMPHOCYTES # 0.4 10^3/ul (0.8-2.9); LYMPHOCYTES % 2.9 % (15.0-51.0); MEAN CORPUSCULAR HEMOGLOBIN 31.2 pg (29.0-33.0); MEAN CORPUSCULAR HGB CONC 32.4 g/dl (32.0-37.0); MEAN CORPUSCULAR VOLUME 96.2 fl (82.0-101.0); MEAN PLATELET VOLUME 9.5 fl (7.4-10.4); MONOCYTES % 6.8 % (0.0-11.0); NEUTROPHIL # 12.3 10^3/ul (1.6-7.5); NEUTROPHILS % 87.5 % (39.0-77.0); PLATELET COUNT 303 10^3/UL (140-415); POSITIVE DIFF @See below; RED BLOOD COUNT 3.43 10^6/ul (4.70-6.10)
[2017-11-29 09:22] LABS: WHITE BLOOD COUNT 14.1 10^3/ul (4.8-10.8)
[2017-11-29 11:04] LABS: ANION GAP 12 (8-16); BLOOD UREA NITROGEN 9 mg/dl (7-20); CALCIUM 8.4 mg/dl (8.4-10.2); CARBON DIOXIDE 30 mmol/L (21-31); CHLORIDE 99 mmol/L (97-110); CREATININE 0.65 mg/dl (0.61-1.24); GLUCOSE 113 mg/dl (70-220); POTASSIUM 4.5 mmol/L (3.5-5.1); SODIUM 136 mmol/L (135-144)
[2017-11-29] MEDS: HYDROCODONE/APAP (5/325) TAB PO (13:24)
[2017-11-29] MEDS: SOD CHLORIDE 0.9% 1,000 ML IV ×2 (17:21→17:31)
[2017-11-29] MEDS: morphine 2 MG INJ IV (20:42)
[2017-11-30] MEDS: ALBUTEROL/IPRATROPIUM (NEB) 3 ML AMP HHN ×4 (02:39→19:47)
[2017-11-30] MEDS: SOD CHLORIDE 0.9% 1,000 ML IV (04:00)
[2017-11-30 06:56] LABS: ADD MAN DIFF? NO
[2017-11-30] MEDS: LEVOFLOXACIN 750 MG TABLET PO (06:56)
[2017-11-30 07:04] LABS: WHITE BLOOD COUNT 13.4 10^3/ul (4.8-10.8)
[2017-11-30 07:04] LABS: ABNORMAL IP MESSAGE 1; BASOPHIL # 0.1 10^3/ul (0.0-0.1); BASOPHILS % 0.8 % (0.0-2.0); EOSINOPHILS # 0.2 10^3/ul (0.0-0.5); EOSINOPHILS % 1.3 % (0.0-7.0); HEMATOCRIT 29.6 % (42.0-52.0); HEMOGLOBIN 9.6 g/dl (14.0-18.0); LYMPHOCYTES # 0.3 10^3/ul (0.8-2.9); LYMPHOCYTES % 2.2 % (15.0-51.0); MEAN CORPUSCULAR HEMOGLOBIN 31.1 pg (29.0-33.0); MEAN CORPUSCULAR HGB CONC 32.4 g/dl (32.0-37.0); MEAN CORPUSCULAR VOLUME 95.8 fl (82.0-101.0); MEAN PLATELET VOLUME 9.2 fl (7.4-10.4); MONOCYTES % 7.8 % (0.0-11.0); NEUTROPHIL # 11.7 10^3/ul (1.6-7.5); NEUTROPHILS % 87.2 % (39.0-77.0); PLATELET COUNT 256 10^3/UL (140-415); POSITIVE DIFF @See below; RED BLOOD COUNT 3.09 10^6/ul (4.70-6.10); RED CELL DISTRIBUTION WIDTH 13.9 % (11.5-14.5)
[2017-11-30 07:26] LABS: ANION GAP 8 (8-16); BLOOD UREA NITROGEN 10 mg/dl (7-20); CALCIUM 7.9 mg/dl (8.4-10.2); CARBON DIOXIDE 29 mmol/L (21-31); CHLORIDE 102 mmol/L (97-110); CREATININE 0.64 mg/dl (0.61-1.24); GLUCOSE 88 mg/dl (70-220); POTASSIUM 3.9 mmol/L (3.5-5.1); SODIUM 135 mmol/L (135-144)
[2017-11-30] MEDS: GUAIFENESIN LA 600 MG TABSR PO ×2 (09:08→21:33)
[2017-12-01] MEDS: ALBUTEROL/IPRATROPIUM (NEB) 3 ML AMP HHN ×4 (01:55→20:20)
[2017-12-01] MEDS: LEVOFLOXACIN 750 MG TABLET PO (06:48)
[2017-12-01] MEDS: GUAIFENESIN LA 600 MG TABSR PO ×2 (08:34→22:04)
[2017-12-02] MEDS: ALBUTEROL/IPRATROPIUM (NEB) 3 ML AMP HHN ×4 (01:07→20:15)
[2017-12-02] MEDS: DIPHENHYDRAMINE 25 MG CAP PO (02:52)
[2017-12-02] MEDS: LEVOFLOXACIN 750 MG TABLET PO (06:04)
[2017-12-02] MEDS: HYDROCODONE/APAP (5/325) TAB PO (08:42)
[2017-12-02] MEDS: ONDANSETRON 4 MG INJ IV (08:43)
[2017-12-02] MEDS: GUAIFENESIN LA 600 MG TABSR PO ×2 (09:00→23:06)
[2017-12-02] MEDS: morphine LIQ (10 MG/5 ML) CUP PO (23:09)
[2017-12-03] MEDS: ALBUTEROL/IPRATROPIUM (NEB) 3 ML AMP HHN ×4 (02:00→19:55)
[2017-12-03] MEDS: LEVOFLOXACIN 750 MG TABLET PO (05:27)
[2017-12-03] MEDS: GUAIFENESIN LA 600 MG TABSR PO ×2 (09:17→21:08)
[2017-12-04] MEDS: ALBUTEROL/IPRATROPIUM (NEB) 3 ML AMP HHN ×4 (02:00→19:22)
[2017-12-04] MEDS: GUAIFENESIN LA 600 MG TABSR PO ×2 (08:28→20:37)
[2017-12-04] MEDS: DIPHENHYDRAMINE 50 MG CAP PO (20:37)
[2017-12-05] MEDS: ALBUTEROL/IPRATROPIUM (NEB) 3 ML AMP HHN ×2 (01:38→09:10)
[2017-12-05] MEDS: GUAIFENESIN LA 600 MG TABSR PO (08:13)
== END 2017-12-05 11:34 | disposition home or self-care (01) | DRG 853 ==
LOC: PP2 11-19 19:44 → MS1 12-02 00:11 → E/R 18:23 → ICU 11-24 21:15 → MS3 11-18 00:52 → TEL 11-26 20:52 → MS4 11-18 17:14
PROC: 0BNL4ZZ Release Left Lung, Percutaneous Endoscopic Approach (ICD-10-PCS; principal; 2017-11-24 17:30)
PROC: 0BNL0ZZ Release Left Lung, Open Approach (ICD-10-PCS; 2017-11-24 17:30)
PROC: 0B9L8ZZ Drainage of Left Lung, Via Natural or Artificial Opening Endoscopic (ICD-10-PCS; 2017-11-24 17:30)
DX: A41.9 Sepsis, unspecified organism (principal); J86.9 Pyothorax without fistula; J15.0 Pneumonia due to Klebsiella pneumoniae; J90 Pleural effusion, not elsewhere classified; E87.1 Hypo-osmolality and hyponatremia; D68.9 Coagulation defect, unspecified; R78.81 Bacteremia; K56.7 Ileus, unspecified; R65.20 Severe sepsis without septic shock; K70.30 Alcoholic cirrhosis of liver without ascites; Z59.0 Homelessness
CPT/HCPCS: 36415; 36430; 36600; 71045; 71250; 74018; 74176; 80048; 80053; 80061; 80307; 81003; 82533; 82550; 82553; 82803; 83036; 83605; 83690; 83735; 83880; 84100; 84443; 84484; 85014; 85018; 85025; 85610; 85730; 86038; 86703; 86704; 86709; 86803; 86850; 86900; 86901; 86920; 87040; 87070; 87081; 87086; 87275; 87276; 87279; 87280; 87340; 93005; 93306; 94002; 94003; 94640; 94664; 94770; 96365; 96366; 96375; 97116; 97162; 97530; 99285-25

== ENCOUNTER 2018-04-13 02:42 | Emergency (ER) | payer OTHER ==
[2018-04-13] MEDS: IBUPROFEN 800 MG TAB PO (04:14)
[2018-04-13 04:55] LABS: ADD MAN DIFF? NO
[2018-04-13 05:19] LABS: ANION GAP 10 (5-13); BLOOD UREA NITROGEN 8 mg/dl (7-20); CALCIUM 7.9 mg/dl (8.4-10.2); CARBON DIOXIDE 31 mmol/L (21-31); CHLORIDE 104 mmol/L (97-110); CREATININE 0.42 mg/dl (0.61-1.24); Estimated GFR > 60 mL/min (>60); GLUCOSE 154 mg/dl (70-220); POTASSIUM 4.5 mmol/L (3.5-5.1); SODIUM 145 mmol/L (135-144)
[2018-04-13 05:29] LABS: ABNORMAL IP MESSAGE 1; BASOPHIL # 0.1 10^3/ul (0.0-0.1); BASOPHILS % 1.1 % (0.0-2.0); EOSINOPHILS # 0.3 10^3/ul (0.0-0.5); EOSINOPHILS % 6.9 % (0.0-7.0); HEMATOCRIT 34.1 % (42.0-52.0); HEMOGLOBIN 11.5 g/dl (14.0-18.0); LYMPHOCYTES # 0.2 10^3/ul (0.8-2.9); LYMPHOCYTES % 4.3 % (15.0-51.0); MEAN CORPUSCULAR HEMOGLOBIN 30.4 pg (29.0-33.0); MEAN CORPUSCULAR HGB CONC 33.7 g/dl (32.0-37.0); MEAN CORPUSCULAR VOLUME 90.2 fl (82.0-101.0); MEAN PLATELET VOLUME 9.6 fl (7.4-10.4); MONOCYTE # 0.7 10^3/ul (0.3-0.9); MONOCYTES % 14.4 % (0.0-11.0); NEUTROPHIL # 3.4 10^3/ul (1.6-7.5); NEUTROPHILS % 73.1 % (39.0-77.0); PLATELET COUNT 84 10^3/UL (140-415); POSITIVE DIFF @See below; RED BLOOD COUNT 3.78 10^6/ul (4.70-6.10); RED CELL DISTRIBUTION WIDTH 15.1 % (11.5-14.5)
[2018-04-13 05:29] LABS: WHITE BLOOD COUNT 4.7 10^3/ul (4.8-10.8)
[2018-04-13 05:30] LABS: TROPONIN-I 0.014 ng/ml (0.000-0.120)
== END 2018-04-13 06:49 | disposition home or self-care (01) ==
LOC: E/R 02:42
DX: R07.9 Chest pain, unspecified (principal); D64.9 Anemia, unspecified
CPT/HCPCS: 36415; 71045; 80048; 84484; 85025; 99285-25